=== PATIENT | female | born 1945 | race Caucasian/White ===

== ENCOUNTER 2018-08-23 10:41 | Observation (INO) ==
--- NOTE | 2018-08-23 15:50 | Orthopedic Consult Note ---
Date of Encounter: 08/23/18 Time of Encounter: 15:00 Assessment and Plan (1) Fracture of humeral shaft, left, closed Current Visit: Yes Status: Acute Qualifiers: Encounter type: initial encounter Fracture morphology: unspecified fracture morphology Qualified Code(s): S42.302A - Unspecified fracture of shaft of humerus, left arm, initial encounter for closed fracture (2) History of orthopedic surgery Current Visit: Yes Status: Chronic Patient is s/p RIGHT humerus ORIF for fracture on 07/22/[address] Ham (3) Closed right humeral fracture Current Visit: Yes Status: Acute Qualifiers: Encounter type: subsequent encounter Humerus Location: shaft Fracture morphology: unspecified fracture morphology Fracture healing: with routine healing Qualified Code(s): S42.301D - Unspecified fracture of shaft of humerus, right arm, subsequent encounter for fracture with routine healing History of Present Illness Chief complaint: left shoulder pain HPI: Ms. Manning is a 73 year old female known to [facility]. She presents today after falling backward per patient while trying to put food out for her cats. She states she was stooped forward and lost her balance and fell backward onto buttocks and her left shoulder per patient. She states her arm was in pain and she "bumped" her head leading to transport to ED for evaluation. She states if she moves her left arm it hurts, but the pain is manageable when she is rest ing. Patient is known to [facility] as she sustained a right humerus fracture on 07/14 and subsequently was sent to [facility] for second opinion on 07/20 and was recommended for surgical intervention. She underwent Right open reduction internal fixation proximal humerus on 07/22/[address] Ham. Patient was provided Bone stimulator and was instructed for no shoulder motion with placement Sling and pillow brace for 6 weeks. Patient has kept regular follow up with adherence to instructions regarding no use of RUE and was last seen by this provider on 08/19/18 and appeared to be doing well. On exam patient is resting comfortably supine in bed. Right arm in sling. No gross deformity noted of either upper extremity Honeycomb opsite noted to right anterior shoulder - left in place Right elbow and wrist ROM intact with appropriate auto garage mechanic strength and sensation Left shoulder tender to palpation along anterior aspect. Elbow, wrist, and hand motion intact. General Service Officer strength intact. Sensation intact. Neurovascularly intact b/l UE B/L LE appear without defect. Xrays reveal left proximal humerus fracture Case reviewed with Dr. Ham Patient is just over 4 weeks status post right humerus ORIF. Patient requires bone stimulator use for this fracture 3 hours daily and is nonweightbearing with no shoulder motion of the right arm. Patient is not necessarily aware enough to exercise caution and avoid use of the right arm outside of the brace. Left arm requires immobilization for fracture. Will treat with nonoperative measures as patient has minimal pain at rest. We did discuss surgical options however patient in agreement with conservative treatment at this time. Immobilize left arm in Slingshot brace with abduction pillow. Patient educated on NO SHOULDER MOTION May remove sling to right arm at rest however when ambulating or active should have sling to RIGHT arm and Slingshot brace with pillow to left arm Nonweightbearing bilateral upper extremities NO shoulder motion bilateral shoulders Discussed with patient as this is the second major fall leading to large injury, would likely benefit from ECF placement. Patient states she will consider. We will keep her outpatient follow up as scheduled with our office and continue to monitor her right humerus fixation as well as her new Left humerus fracture. Thank you for this consultation. Please call with any questions or concerns. Past Med Surg Social Fam HX - Past Medical History Medical history: arthritis, fibromyalgia, hyperlipidemia, hypertension Psychiatric history: no psych history - Past Surgical History Surgical History: hysterectomy, knee replacement Additional surgical history: R TKR, B CTR, deep core vein - Social History Smoking Status: Never smoker Smokeless Tobacco Status: No Alcohol use: none Drug use: none - Family History Father Hx Family Endocrine Disorder: Yes (DM) Hx Family Neurologic Disorders: Yes (Stroke) Medications and Allergies Allopurinol [Zyloprim 100 MG] 200 mg PO DAILY #0 07/22/18 [History] Celecoxib 1 tab PO DAILY 07/22/18 [History] Duloxetine HCl [Cymbalta] 60 mg PO DAILY 07/22/18 [History] Gabapentin [Neurontin] 300 mg PO QID 07/22/18 [History] Glimepiride [Amaryl] 4 mg PO DAILY 07/22/18 [History] Lansoprazole [Prevacid] 15 mg PO DAILY 07/22/18 [History] Linagliptin [Tradjenta] 1 tab PO DAILY 07/22/18 [History] Metformin HCl 500 mg PO DAILY 07/22/18 [History] Potassium Chloride [Klor-Con 10] 10 meq PO DAILY 07/22/18 [History] Ropinirole HCl [Requip] 2 mg PO DAILY 07/22/18 [History] Rosuvastatin [Crestor] 20 mg PO DAILY 07/22/18 [History] Acetaminophen [Tylenol] 325 - 650 mg PO DAILY PRN 08/24/18 [History] Allergy/AdvReac Type Severity Reaction Status Date / Time bacitracin [From Polysporin] AdvReac See Verified 08/24/18 21:13 Comments hydromorphone [From Dilaudid] AdvReac Agitated/an Verified 08/24/18 21:13 gry Neomycin AdvReac See Verified 08/24/18 21:13 [From Neosporin Comments ([id number])] polymyxin B [From Polysporin] AdvReac See Verified 08/24/18 21:13 Comments All Systems Reviewed: The remainder of the systems were reviewed and are negative Results - Labs Result Diagrams: 08/24/18 07:23 08/24/18 04:10 Labs: All other labs normal. Consult Discharge Plan - Plan Referrals: Santiago Busch DO [Primary Care Provider] -
[2018-08-23] MEDS ORDERED: *HR* Promethazine 25 MG/ML VIAL IVP PRN (16:27)
[2018-08-23] MEDS ORDERED: Ondansetron 4 MG/2 ML VIAL IVP PRN (16:27)
[2018-08-23] MEDS ORDERED: Ondansetron ODT 4 MG TAB.RAPDIS SL PRN (16:27)
[2018-08-23] MEDS ORDERED: Naloxone 0.4 MG/ML INJ IVP PRN (16:27)
[2018-08-23] MEDS ORDERED: traMADol 50 MG TABLET PO PRN (16:27)
[2018-08-23] MEDS ORDERED: MOM Conc 10 ML UD.LIQ PO PRN (16:27)
[2018-08-23] MEDS ORDERED: *HR* Morphine 2 MG/ML SYRINGE IVP PRN (16:29)
[2018-08-23] MEDS ORDERED: D5% in Water 1,000 ML IVC PRN (16:30)
[2018-08-23] MEDS ORDERED: Dextrose Gel 15 GM/37.5 ML TUBE PO PRN ×2 (16:30)
[2018-08-23] MEDS ORDERED: *HR* Dextrose 50 % in Water (Syg) 50 ML SYRINGE IVP PRN (16:30)
--- NOTE | 2018-08-23 16:38 | Internal Med History&Physical ---
Date of Encounter: 08/23/18 Time of Encounter: 16:33 Internal Medicine - H&P: HPI Admitted From: Home Plans for Post Hospital Care: Home History of present illness: Ms. Manning is a 73 year old female with past medical history for diabetes mellitus, hypertension, hyperlipidemia, fibromyalgia, and arthritis who was transferred from [facility] because of left humeral shaft fracture. Patient is living at home with her girlfriend. This morning, when she was feeding her cats, she lost balance and fell backward. She is stated she tried to protect her right arm so she landed on the left side. She immediately experienced severe pain on the right arm. She was sent to [facility] ER for evaluation, where x-ray showed left humeral shaft fracture and she was transferred here for further evaluation. Patient denies loss of consciousness during the event, she has no fever, chills, or night sweats recently, she has no weight loss, bowel habit change, or eating habit change. She also denies chest pain, shortness of breath, palpitation, or syncope. Upon arrival to the floor, patient was alert and oriented, her vital signs were stable. Status discussed with patient, she wishes to be full code. Past Med Surg Social Fam HX - Past Medical History Medical history: arthritis, fibromyalgia, hyperlipidemia, hypertension Psychiatric history: no psych history - Past Surgical History Surgical History: hysterectomy, knee replacement Additional surgical history: R TKR, B CTR, deep core vein - Social History Smoking Status: Never smoker Smokeless Tobacco Status: No Alcohol use: none Drug use: none - Family History Father Hx Family Endocrine Disorder: Yes (DM) Hx Family Neurologic Disorders: Yes (Stroke) Internal Medicine - H&P: Meds Acetaminophen [Tylenol Arthritis] 650 mg PO DAILY PRN 07/22/18 [History] Allopurinol 100 mg PO DAILY 07/22/18 [History] Celecoxib 1 tab PO DAILY 07/22/18 [History] Clindamycin [Cleocin] 150 mg PO Q6HR #7 capsule 07/22/18 [Rx] Duloxetine HCl [Cymbalta] 60 mg PO DAILY 07/22/18 [History] Gabapentin [Neurontin] 4 tab PO TID 07/22/18 [History] Glimepiride [Amaryl] 4 mg PO DAILY 07/22/18 [History] Lansoprazole [Prevacid] 15 mg PO DAILY 07/22/18 [History] Linagliptin [Tradjenta] 1 tab PO DAILY 07/22/18 [History] Metformin HCl 500 mg PO DAILY 07/22/18 [History] Potassium Chloride [Klor-Con 10] 10 meq PO DAILY 07/22/18 [History] Ropinirole HCl [Requip] 2 mg PO DAILY 07/22/18 [History] Rosuvastatin [Crestor] 20 mg PO DAILY 07/22/18 [History] Allergy/AdvReac Type Severity Reaction Status Date / Time bacitracin [From Polysporin] AdvReac See Verified 07/22/18 08:45 Comments hydromorphone [From Dilaudid] AdvReac Agitated Verified 07/22/18 08:45 Neomycin AdvReac See Verified 07/22/18 08:45 [From Neosporin Comments ([id number])] polymyxin B [From Polysporin] AdvReac See Verified 07/22/18 08:45 Comments All Systems PM: A 10-system review of systems was performed and is negative for pertinent findings except as documented above in the HPI. Review of systems: REVIEW OF SYSTEMS: CONSTITUTIONAL: No weight loss, fever, chills, weakness or fatigue. HEENT: Eyes: No visual loss, blurred vision, double vision or yellow sclerae. Ears, Nose, Throat: No hearing loss, sneezing, congestion, runny nose or sore throat. SKIN: No rash or itching. CARDIOVASCULAR: No chest pain, chest pressure or chest discomfort. No palpitations or edema. RESPIRATORY: No shortness of breath, cough or sputum. GASTROINTESTINAL: No anorexia, nausea, vomiting or diarrhea. No abdominal pain or blood. GENITOURINARY: No dysuria, urgency, or frequency. NEUROLOGICAL: No headache, dizziness, syncope, paralysis, ataxia, numbness or tingling in the extremities. No change in bowel or bladder control. MUSCULOSKELETAL: see HPI. HEMATOLOGIC: No anemia, bleeding or bruising. LYMPHATICS: No enlarged nodes. No history of splenectomy. PSYCHIATRIC: No history of depression or anxiety. ENDOCRINOLOGIC: No reports of sweating, cold or heat intolerance. No polyuria or polydipsia. - Constitutional Vitals: Temp Pulse Resp BP Pulse Ox 98.6 F 66 16 148/80 94 08/23/18 15:46 08/23/18 15:46 08/23/18 15:46 08/23/18 15:46 08/23/18 15:46 General appearance: Present: A&O X 3 Exam: PHYSICAL EXAMINATION: GENERAL APPEARANCE: The patient is alert, oriented and in no acute distress. HEENT: Head is normocephalic. The sinuses are nontender. Pupils are equal and reactive. The nares are patent. Oropharynx clear without lesions. NECK: Supple without lymphadenopathy. HEART: Regular rate and rhythm. LUNGS: No crackles or wheezes are heard. ABDOMEN: Soft, nontender, nondistended with good bowel sounds heard. Inguinal area is normal. EXTREMITIES: Without cyanosis, clubbing or edema. NEUROLOGICAL: Gross nonfocal. SKIN: Warm and dry without any rash. - Assessment and Plan (1) Fracture of humeral shaft, left, closed Current Visit: Yes Status: Acute Assessment and plan: Orthopedics consulted. Nothing by mouth after midnight for possible procedure tomorrow. Pain control and supportive care, DVT prophylaxis. Qualifiers: Encounter type: initial encounter Fracture morphology: unspecified fracture morphology Qualified Code(s): S42.302A - Unspecified fracture of shaft of humerus, left arm, initial encounter for closed fracture (2) HTN (hypertension) Current Visit: No Status: Chronic Assessment and plan: Continue home medication, hydralazine as needed. Qualifiers: Hypertension type: unspecified Qualified Code(s): I10 - Essential (primary) hypertension (3) Diabetes mellitus Current Visit: No Status: Chronic Assessment and plan: Hold all the oral agent while in the hospital, started patient on insulin sliding scale. Qualifiers: Diabetes mellitus type: type 2 Diabetes mellitus long haul truck driver insulin use: without senior care use Diabetes mellitus complication status: without complication Qualified Code(s): E11.9 - Type 2 diabetes mellitus without complications (4) Hyperlipidemia Current Visit: No Status: Chronic Assessment and plan: Continue home medication. Qualifiers: Hyperlipidemia type: unspecified Qualified Code(s): E78.5 - Hyperlipidemia, unspecified (5) Fibromyalgia Current Visit: No Status: Chronic Assessment and plan: Continue home medications including gabapentin. (6) DVT prophylaxis Current Visit: Yes Status: Acute Assessment and plan: Heparin subcutaneous. - Time Spent With Patient Total time spent is greater than 50% in coordination of care (as documented) at patient's floor/unit and/or counseling patient: Greater than 35 minutes
[2018-08-23] MEDS: Insulin LISPRO 300 UNITS/3 ML VIAL SQ SCH ×2 (19:06→21:25)
[2018-08-23] MEDS: Gabapentin 300 MG CAPSULE PO SCH (20:45)
[2018-08-23] MEDS: *HR* Heparin 5,000 UNIT/ML VIAL SQ SCH (21:10)
[2018-08-24] MEDS: *HR* Heparin 5,000 UNIT/ML VIAL SQ SCH ×3 (02:21→16:51)
[2018-08-24 04:42] LABS: INR 1.2; Prothrombin Time 13.4 Seconds (9.4-12.1)
[2018-08-24 04:54] LABS: Alanine Aminotransferase 13 Units/L (7-52); Albumin/Globulin Ratio 1.5 (1.1-2.2); Alkaline Phosphatase 92 Units/L (34-104); Aspartate Amino Transferase 14 Units/L (13-39); BUN/Creatinine Ratio 11 (6-26); Bilirubin,Total 0.4 mg/dL (0.3-1.0); Blood Urea Nitrogen 6 mg/dL (8-23); Calcium 9.4 mg/dL (8.6-10.3); Carbon Dioxide 27 mEq/L (23-29); Chloride 99 mEq/L (98-107); Globulin 2.6 g/dL (2.4-3.5); Glucose 146 mg/dL (70-105); Magnesium 1.9 mg/dL (1.6-2.6); Osmolality,Calculated 284 (280-300); Potassium 3.1 mEq/L (3.5-5.1); Sodium 137 mEq/L (136-145); Total Protein 6.6 g/dL (6.4-8.9); eGFR For African Americans > 60 (> 60); eGFR For Non-African Americans > 60 (> 60)
[2018-08-24 07:40] LABS: Basophils % 0.1 %; Eosinophils # 0.1 K/mcL (0.0-0.6); Eosinophils % 0.6 %; Hematocrit 38.1 % (35.3-44.9); Hemoglobin 12.7 g/dL (11.5-15.4); Immature Granulocytes % 0.2 % (0-4); Lymphocytes % 11.4 %; Mean Corpuscular HGB Conc 33.3 g/dL (31.6-35.5); Mean Corpuscular Hemoglobin 30.5 pg (28.0-33.3); Mean Corpuscular Volume 91.4 fL (83.0-100.0); Mean Platelet Volume 9.6 fL (9.4-12.4); Monocytes # 0.6 K/mcL (0.0-1.3); Monocytes % 6.6 %; Neutrophils # 7.2 K/mcL (1.6-8.9); Platelet Count 299 K/mcL (140-400); Red Blood Count 4.17 M/mcL (3.82-4.97); Red Cell Distribution Width 12.4 % (11.5-14.5); Segmented Neutrophils % 81.1 %; White Blood Count 8.8 K/mcL (4.3-11.1)
[2018-08-24] MEDS: Insulin LISPRO 300 UNITS/3 ML VIAL SQ SCH ×4 (08:10→21:12)
[2018-08-24] MEDS: Acetaminophen 325 MG TABLET PO PRN (08:17)
[2018-08-24] MEDS: Gabapentin 300 MG CAPSULE PO SCH ×3 (08:17→21:12)
[2018-08-24] MEDS ORDERED: Potassium Chloride 20 MEQ, Lidocaine 1% 2 ML in D5% in Water 250 ML IVPB ONE (08:43)
--- NOTE | 2018-08-24 08:44 | Internal Med Progress Note ---
Hospitalist Progress Note - Encounter Date of Encounter: 08/24/18 Time of Encounter: 08:43 - Subjective Interval History: Patient was seen and examined at bedside currently states her pain is controlled. Currently has both arms in sling encourage patient to keep arms elevated. Patient will most likely require placement for rehabilitation we will consult social work associate PT and OT. Did discuss this with the patient who expresses that she would like to stay home into rehabilitation. Advised that this may not be the safest option-patient verbalized that she will do what she needs to get better. Patient will require greater than 2 midnights for dez atment switch to inpatient status - Exam Vitals: Temp Pulse Resp BP Pulse Ox 99.3 F 76 18 120/58 97 08/24/18 07:33 08/24/18 07:33 08/24/18 07:33 08/24/18 07:33 08/24/18 07:33 Exam: PHYSICAL EXAMINATION: GENERAL APPEARANCE: The patient is alert, oriented and in no acute distress. HEENT: Head is normocephalic. The sinuses are nontender. Pupils are equal and reactive. The nares are patent. Oropharynx clear without lesions. NECK: Supple without lymphadenopathy. HEART: Regular rate and rhythm. LUNGS: No crackles or wheezes are heard. ABDOMEN: Soft, nontender, nondistended with good bowel sounds heard. Inguinal area is normal. EXTREMITIES: Without cyanosis, clubbing or edema. NEUROLOGICAL: Gross nonfocal. SKIN: Warm and dry without any rash. - Assessment and Plan (1) Fracture of humeral shaft, left, closed Current Visit: Yes Status: Acute Assessment and Plan: Orthopedics consulted. No surgical intervention at this time Pain control and supportive care, DVT prophylaxis. PT OT has been consulted patient will require assistance after discharge since she is unable to move both arms-social work associate consulted for ECF/rehabilitation placement (2) HTN (hypertension) Current Visit: No Status: Chronic Assessment and Plan: Continue home medication, hydralazine as needed. (3) Diabetes mellitus Current Visit: No Status: Chronic Assessment and Plan: Hold all the oral agent while in the hospital, started patient on insulin sliding scale. Accu-Cheks before meals and at bedtime (4) Hyperlipidemia Current Visit: No Status: Chronic Assessment and Plan: Continue home medication. (5) Fibromyalgia Current Visit: No Status: Chronic Assessment and Plan: Continue home medications including gabapentin. (6) DVT prophylaxis Current Visit: Yes Status: Acute Assessment and Plan: Heparin subcutaneous. - Time Spent with Patient Total time spent is greater than 50% in coordination of care (as documented) at patient's floor/unit and/or counseling patient: Internal Medicine: Result - Labs CBC & Chem 7: 08/24/18 07:23 08/24/18 04:10 Labs: Short CBC 08/24/18 Range/Units 07:23 WBC 8.8 (4.3-11.1) K/mcL Hgb 12.7 (11.5-15.4) g/dL Hct 38.1 (35.3-44.9) % Plt Count 299 (140-400) K/mcL Neutrophils # 7.2 (1.6-8.9) K/mcL BMP 08/24/18 04:10 Sodium 137 Potassium 3.1 L Chloride 99 Carbon Dioxide 27 BUN 6 L Creatinine 0.53 L Glucose 146 H Calcium 9.4 Liver Function 08/24/18 Range/Units 04:10 Total Bilirubin 0.4 (0.3-1.0) mg/dL AST 14 (13-39) Units/L ALT 13 (7-52) Units/L Alkaline Phosphatase 92 (34-104) Units/L Albumin 4.0 (3.5-5.7) g/dL - ABG Interpretation ABG results: PT/INR, D-dimer PT 13.4 Seconds (9.4-12.1) H 08/24/18 04:10 Consult Discharge Plan - Plan Referrals: Santiago Busch, [Primary Care Provider] - (1) Fracture of humeral shaft, left, closed Qualifiers: Encounter type: initial encounter Fracture morphology: unspecified fracture morphology Qualified Code(s): S42.302A - Unspecified fracture of shaft of humerus, left arm, initial encounter for closed fracture (2) HTN (hypertension) Qualifiers: Hypertension type: unspecified Qualified Code(s): I10 - Essential (primary) hypertension (3) Diabetes mellitus Qualifiers: Diabetes mellitus type: type 2 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
[2018-08-24] MEDS: OXYCODONE Oral CONC 10 MG/0.5 ML ORAL.SYG SL PRN (17:01)
[2018-08-25] MEDS: *HR* Heparin 5,000 UNIT/ML VIAL SQ SCH ×3 (03:57→16:33)
[2018-08-25] MEDS: Acetaminophen 325 MG TABLET PO PRN (03:58)
[2018-08-25 05:21] LABS: Basophils % 0.4 %; Eosinophils # 0.1 K/mcL (0.0-0.6); Eosinophils % 1.4 %; Hematocrit 36.3 % (35.3-44.9); Hemoglobin 12.1 g/dL (11.5-15.4); Immature Granulocytes % 0.3 % (0-4); Lymphocytes # 1.1 K/mcL (0.6-4.6); Lymphocytes % 11.5 %; Mean Corpuscular HGB Conc 33.3 g/dL (31.6-35.5); Mean Corpuscular Hemoglobin 30.1 pg (28.0-33.3); Mean Corpuscular Volume 90.3 fL (83.0-100.0); Mean Platelet Volume 10.1 fL (9.4-12.4); Monocytes # 0.7 K/mcL (0.0-1.3); Monocytes % 7.6 %; Neutrophils # 7.2 K/mcL (1.6-8.9); Platelet Count 287 K/mcL (140-400); Red Blood Count 4.02 M/mcL (3.82-4.97); Red Cell Distribution Width 12.6 % (11.5-14.5); Segmented Neutrophils % 78.8 %; White Blood Count 9.2 K/mcL (4.3-11.1)
[2018-08-25 05:43] LABS: BUN/Creatinine Ratio 20 (6-26); Blood Urea Nitrogen 14 mg/dL (8-23); Carbon Dioxide 26 mEq/L (23-29); Chloride 99 mEq/L (98-107); Glucose 133 mg/dL (70-105); Osmolality,Calculated 284 (280-300); Potassium 3.2 mEq/L (3.5-5.1); Sodium 136 mEq/L (136-145); eGFR For African Americans > 60 (> 60); eGFR For Non-African Americans > 60 (> 60)
[2018-08-25] MEDS ORDERED: Pantoprazole 40 MG VIAL IVP SCH (09:00)
[2018-08-25] MEDS ORDERED: amLODIPine 5 MG TABLET PO SCH (09:00)
[2018-08-25] MEDS: Insulin LISPRO 300 UNITS/3 ML VIAL SQ SCH ×3 (09:14→16:32)
[2018-08-25] MEDS: Gabapentin 300 MG CAPSULE PO SCH ×3 (09:15→16:24)
[2018-08-25] MEDS: OXYCODONE Oral CONC 10 MG/0.5 ML ORAL.SYG SL PRN (11:23)
--- NOTE | 2018-08-25 13:59 | Discharge Summary ---
- NOTES TO OUTPATIENT PROVIDER Notes to Outpatient Provider: Follow-up with orthopedic as outpatient Date of Encounter: 08/25/18 Time of Encounter: 12:00 - Discharge Diagnosis (1) Fracture of humeral shaft, left, closed Priority: Primary Status: Acute Qualifiers: Encounter type: initial encounter Fracture morphology: unspecified fracture morphology Qualified Code(s): S42.302A - Unspecified fracture of shaft of humerus, left arm, initial encounter for closed fracture (2) HTN (hypertension) Priority: Secondary Status: Chronic Qualifiers: Hypertension type: unspecified Qualified Code(s): I10 - Essential (primary) hypertension (3) Diabetes mellitus Priority: Secondary Status: Chronic Qualifiers: Diabetes mellitus type: type 2 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 Manning is a 73 year old female history of hypertension, hyperlipidemia, diabetes, who recently fell and suffered from R humerus fracture s/p ORIF in 07/2018, who was again admitted for mechanical fall and L humeral fracture. Managed in consultation with orthopedic surgery who decided to treat with nonoperative measures as pt has minimal pain at rest. Immobilize left arm in Slingshot brace with abduction pillow, may remove sling to right arm at rest however when ambulating or active should have sling to RIGHT arm and Slingshot brace with pillow to left arm. NWB and no shoulder motion bilaterally. She was strongly recommended to go to [facility] for further rehab given recurrent but adamantly refused despite being educated on further fall risk, head injury, multiple fractures, and potential . Pt verbalized understanding and opted to be discharged with home health support. Discharge discussed with: patient, nurse, social work, case management - Time Spent with Patient Total time spent providing and/or coordinating discharge services: 33 mins - Discharge Medications Prescriptions: New HYDROcodone/Acet 5/325 mg [Kathryn 5-325 mg] 1 tab PO Q6H PRN 5 Days #15 tab PRN Reason: Breakthrough Pain amLODIPine [Norvasc] 5 mg PO DAILY #30 tablet Continued Rosuvastatin [Crestor] 20 mg PO QPM Ropinirole HCl [Requip] 2 mg PO DAILY PRN PRN Reason: TREMORS Potassium Chloride [Klor-Con 10] 10 meq PO DAILY Metformin HCl 500 mg PO DAILY Linagliptin [Tradjenta] 1 tab PO DAILY Lansoprazole [Prevacid] 15 mg PO DAILY PRN PRN Reason: Heartburn Glimepiride [Amaryl] 4 mg PO DAILY Gabapentin [Neurontin] 1,200 mg PO QID Duloxetine HCl [Cymbalta] 60 mg PO DAILY Celecoxib [Celebrex] 200 mg PO DAILY #0 Allopurinol [Zyloprim 100 MG] 200 mg PO DAILY #0 Acetaminophen [Tylenol] 325 - 650 mg PO DAILY PRN PRN Reason: Pain Tizanidine HCl 2 mg PO Q8H PRN PRN Reason: Muscle Spasm Home Medications: Allopurinol [Zyloprim 100 MG] 200 mg PO DAILY #0 07/22/18 [History] Celecoxib [Celebrex] 200 mg PO DAILY #0 07/22/18 [History] Duloxetine HCl [Cymbalta] 60 mg PO DAILY 07/22/18 [History] Gabapentin [Neurontin] 1,200 mg PO QID 07/22/18 [History] Glimepiride [Amaryl] 4 mg PO DAILY 07/22/18 [History] Lansoprazole [Prevacid] 15 mg PO DAILY PRN 07/22/18 [History] Linagliptin [Tradjenta] 1 tab PO DAILY 07/22/18 [History] Metformin HCl 500 mg PO DAILY 07/22/18 [History] Potassium Chloride [Klor-Con 10] 10 meq PO DAILY 07/22/18 [History] Ropinirole HCl [Requip] 2 mg PO DAILY PRN 07/22/18 [History] Rosuvastatin [Crestor] 20 mg PO QPM 07/22/18 [History] Acetaminophen [Tylenol] 325 - 650 mg PO DAILY PRN 08/24/18 [History] HYDROcodone/Acet 5/325 mg [Kathryn 5-325 mg] 1 tab PO Q6H PRN 5 Days #15 tab [Rx] Tizanidine HCl 2 mg PO Q8H PRN 08/25/18 [History] amLODIPine [Norvasc] 5 mg PO DAILY #30 tablet 08/25/18 [Rx] Allergies/Adverse Reactions: Allergy/AdvReac Type Severity Reaction Status Date / Time bacitracin [From Polysporin] AdvReac See Verified 08/24/18 21:13 Comments hydromorphone [From Dilaudid] AdvReac Agitated/an Verified 08/24/18 21:13 gry Neomycin AdvReac See Verified 08/24/18 21:13 [From Neosporin Comments ([id number])] polymyxin B [From Polysporin] AdvReac See Verified 08/24/18 21:13 Comments Date of admission: 08/23/18 12:44 Primary care physician: Santiago Busch DO Consults: 08/24/18 12:28 Consult to Physical Therapy [CONS] Routine Comment: Evaluate, develop and implement POC Reason for Consult: L humeral fracture as well as recent right ORIF proximal humerus- Does patient have active BEDREST order?: Yes Is patient medically & hemodynamically stable?: Yes Patient assessed for mobility or mobilized this visit?: No 08/24/18 12:35 Consult to Occupational Therapy [CONS] Routine Comment: Evaluate, develop and implement POC Reason for Consult: R and left humeral fx Does patient have active BEDREST order?: No Is patient medically & hemodynamically stable?: Yes Patient assessed for mobility or mobilized this visit?: No 08/24/18 12:36 Consult to Science Technician [CONS] Routine Reason for SW Consult: ECF/Rehab placement - Constitutional Vitals: Temp Pulse Resp BP Pulse Ox 98.2 F 81 15 133/81 97 08/25/18 10:02 08/25/18 10:02 08/25/18 10:02 08/25/18 10:02 08/25/18 10:02 General appearance: Present: A&O X 3 Exam: PGENERAL APPEARANCE: The patient is alert, oriented and in no acute distress. HEART: Regular rate and rhythm. LUNGS: No crackles or wheezes are heard. ABDOMEN: Soft, nontender, nondistended with good bowel sounds heard. Inguinal area is normal. EXTREMITIES: Both UEs in sling. L shoulder tender to palpation anteroirly. Neurovascularly intact with normal elbow, wrist, and hand ROM. NEUROLOGICAL: Gross nonfocal. - Patient Status Disposition: Home Health Service Condition: Fair Overall status at discharge: patient is progressing back to baseline - Discharge Instructions Instructions: Arm Fracture in Adults (DC), Diabetes Mellitus Type 2 in Adults (DC), Chronic Hypertension (DC) Follow Up With: Santiago Busch DO [Primary Care Provider] - Crow Ham MD [Partnered Physician] - - Diet and Activity Activity: as per physical therapy Diet: diabetic diet
--- NOTE | 2018-08-25 14:02 | Physician Discharge Referral ---
Home Health/Hosp Referral Info Transfer to: Home Health Provider in Charge Post Discharge: PCP - Diagnosis (1) Fracture of humeral shaft, left, closed Priority: Primary Status: Acute (2) HTN (hypertension) Priority: Secondary Status: Chronic (3) Diabetes mellitus Priority: Secondary Status: Chronic (4) Hyperlipidemia Priority: Secondary Status: Chronic (5) Fibromyalgia Priority: Secondary Status: Chronic (6) DVT prophylaxis Priority: Secondary Status: Acute - Respiratory Orders Smoking Cessation: Smoking cessation has been advised. For more information, call the [place] Tobacco Quit Line at 8-592-TUWQ-NOW. - Diet/Nutrition Diet/Nutrition Orders: No Concentrated Sweets - Services Needed Following services are medically necessary services: Nursing, Home Health Aide, Physical Therapy, Occupational Therapy - Transfer Medications Prescriptions: HYDROcodone/Acet 5/325 mg [Carbon 5-325 mg] 1 tab PO Q6H PRN 5 Days #15 tab PRN Reason: Breakthrough Pain amLODIPine [Norvasc] 5 mg PO DAILY #30 tablet Home Medications: Allopurinol [Zyloprim 100 MG] 200 mg PO DAILY #0 07/22/18 [History] Celecoxib [Celebrex] 200 mg PO DAILY #0 07/22/18 [History] Duloxetine HCl [Cymbalta] 60 mg PO DAILY 07/22/18 [History] Gabapentin [Neurontin] 1,200 mg PO QID 07/22/18 [History] Glimepiride [Amaryl] 4 mg PO DAILY 07/22/18 [History] Lansoprazole [Prevacid] 15 mg PO DAILY PRN 07/22/18 [History] Linagliptin [Tradjenta] 1 tab PO DAILY 07/22/18 [History] Metformin HCl 500 mg PO DAILY 07/22/18 [History] Potassium Chloride [Klor-Con 10] 10 meq PO DAILY 07/22/18 [History] Ropinirole HCl [Requip] 2 mg PO DAILY PRN 07/22/18 [History] Rosuvastatin [Crestor] 20 mg PO QPM 07/22/18 [History] Acetaminophen [Tylenol] 325 - 650 mg PO DAILY PRN 08/24/18 [History] HYDROcodone/Acet 5/325 mg [Carbon 5-325 mg] 1 tab PO Q6H PRN 5 Days #15 tab 08/25/18 [Rx] Tizanidine HCl 2 mg PO Q8H PRN 08/25/18 [History] amLODIPine [Norvasc] 5 mg PO DAILY #30 tablet 08/25/18 [Rx] Allergies/Adverse Reactions: Allergy/AdvReac Type Severity Reaction Status Date / Time bacitracin [From Polysporin] AdvReac See Verified 08/24/18 21:13 Comments hydromorphone [From Dilaudid] AdvReac Agitated/an Verified 08/24/18 21:13 gry Neomycin AdvReac See Verified 08/24/18 21:13 [From Neosporin Comments ([id number])] polymyxin B [From Polysporin] AdvReac See Verified 08/24/18 21:13 Comments Certification: Further, I certify that my clinical findings support that this patient is homebound (i.e. absences from home require considerable and taxing effort and are for medical reasons or syn[employer] services or infrequently or short duration when for other reasons) because: Homebound Reason: Patient requires assistance of a person or device to safely leave home Attestation: My signature below is to certify that this patient is under my care and that I, or nurse practitioner, or a physician's or assistant working with me, has a [id number] encounter with this patient.
[2018-08-25 14:15] VITALS: BP 136/54
== END 2018-08-25 19:02 | disposition home health service (06) ==
LOC: 3ANU → SUATTDRO 12:44
PROVIDERS: ADMIT Internal Medicine Nephrology; ATTEND Internal Medicine